=== PATIENT | male | born 1960 | race Caucasian/White ===

== ENCOUNTER 2020-03-12 17:10 | Emergency (ER) | payer MEDICAID ==
[~2020-03-12] VITALS: Ht 180.3 cm; Wt 81.6 kg
--- NOTE | 2020-03-12 17:10 | NUR ---
Patient to ER bed 4 to gown for evaluation. Side rails up.
[2020-03-12 17:13] VITALS: BP_SYST 133
--- NOTE | 2020-03-12 17:15 | NUR ---
Patient presented to ER C/O gen weak and skin irritation. Patient BIB BLS from home. Patient A&Ox4, afebrile, skin & flakey, pain 08/16, denies N/V/D. Patient states he was at [employer] called 911 for generalized weakness and psoariasis.
--- NOTE | 2020-03-12 17:50 | NUR ---
ER Dr. Tom at bedside examining patient.
[2020-03-12] MEDS ORDERED: MORPHINE 4 MG/ML INJ. SYRINGE IM ONE (18:00)
[2020-03-12 19:10] VITALS: BP_SYST 134
--- NOTE | 2020-03-12 19:10 | NUR ---
Patient given written and verbal discharge instructions and verbalizes understanding. ER MD discussed with patient the results and treatment provided. Patient in stable condition. ID arm band removed. IV catheter removed intact and dressing applied, no active bleeding. Rx of NORCO, PREDNISONE, MOTRIN given. Patient educated on pain management and to follow up with PMD. Pain Scale 3/10. Opportunity for questions provided and answered. Medication side effect fact sheet provided.
== END 2020-03-12 19:10 | disposition home or self-care (01) ==
LOC: SED 17:10
DX: L40.9 Psoriasis, unspecified (principal); R21 Rash and other nonspecific skin eruption; F17.200 Nicotine dependence, unspecified, uncomplicated
CPT/HCPCS: 96372; 99283; J2270

== ENCOUNTER 2020-05-28 22:37 | Emergency (ER) | payer MEDICAID ==
[~2020-05-28] VITALS: Ht 167.6 cm; Wt 72.6 kg
[2020-05-28] MEDS ORDERED: ATROPINE SULFATE 1 MG/10 ML SYRINGE IVP ONE (22:38)
[2020-05-28] MEDS ORDERED: EPINEPHrine JECT 0.1 MG/ML SYR IVP ONE (22:38)
[2020-05-28 22:48] VITALS: BP_SYST 74
--- NOTE | 2020-05-28 22:48 | NUR ---
Patient to ER bed 08 for workup/evaluation. Report given to MARISOL Glynn.
--- NOTE | 2020-05-28 22:50 | NUR ---
ER at bedside examining patient.
--- NOTE | 2020-05-28 22:50 | NUR ---
Pt Respirations assisted with BVM
[2020-05-28] MEDS ORDERED: NALOXONE HCL 0.4 MG/ML AMP (NARCAN) ONE (23:05)
--- NOTE | 2020-05-28 23:07 | NUR ---
Patient not known to be of DNR status. Patient medicated with mg of for sedation prior to placement of ET tube. Respiratory therapy at bedside prior to placement. Size 7, 22 at the lip. ET tube placed by . Auscultation of breath sounds over bilateral chest wall.
--- NOTE | 2020-05-28 23:07 | NUR ---
Patient in bed 8, intubation attempted by . Procedures and medications administered will be on [employer] record and resuscitation documentation tool form.
--- NOTE | 2020-05-28 23:37 | NUR ---
Time of 2337 Addendum: 05/29/20 at 0338 by [email or web address] supervisor tower Jelena sánchez
--- NOTE | 2020-05-28 23:37 | NUR ---
Note yaritzaone in EDM - 05/29/20 at 0338 by [email or web address] Patient not known to be of DNR status. Patient medicated with mg of for sedation prior to placement of ET tube. Respiratory therapy at bedside prior to placement. Size 7, 22 at the lip. ET tube placed by . Auscultation of breath sounds over bilateral chest wall.
--- NOTE | 2020-05-28 23:59 | NUR ---
[employer] called, patient released [id number].
--- NOTE | 2020-05-28 23:59 | NUR ---
[facility] [place]. Gave patient information and vitals. State that they would like to make a Outpatient Interviewing Clerk Case. Case #[id number]. Instructed not to remove any IV Line, Intubation lumens, Catheters, Defibrillation Pads. 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
[2020-05-29 00:44] LABS: BARBITURATE, URINE NEGATIVE (NEG <=200); BENZODIAZEPINE, URINE POSITIVE (NEG <=150); CANNABINOID, URINE NEGATIVE (NEG <=50); COCAINE, URINE NEGATIVE (NEG <=150); METHAMPHETAMINES SCREEN,URINE NEGATIVE (NEG <=500); OPIATE, URINE POSITIVE (NEG <=100); PHENCYCLIDINE SCREEN,URINE NEGATIVE (NEG <=25); UR TRICYCLIC ANTIDEPRESSANTS NEGATIVE (NEG <=300); URINE AMPHETAMINE NEGATIVE (NEG <=500); URINE METHADONE NEGATIVE (NEG <=200); URINE OXYCODONE SCREEN NEGATIVE (NEG <=100); URINE PROPOXYPHENE SCREEN NEGATIVE (NEG <=300)
[2020-05-29] MEDS ORDERED: ROCURONIUM BROMIDE 10 MG/ML (ZEMURON) IV ONE (02:00)
[2020-05-29] MEDS ORDERED: NALOXONE HCL 2 MG/2 ML SYR (NARCAN) IV ONE (02:00)
[2020-05-29] MEDS ORDERED: ETOMIDATE 20 MG/ 10 ML VIAL (AMIDATE) IVP ONE (02:00)
== END 2020-05-28 23:37 | disposition expired ==
LOC: SED 22:37
DX: I27.9 Pulmonary heart disease, unspecified (principal)
CPT/HCPCS: 31500; 80307; 92950; 96374; 96375; 99285; J0171; J0461; J2310; J3490